=== PATIENT | male | born 1945 ===

== ENCOUNTER 2022-01-13 08:00 | Day surgery (SDC) | payer OTHER ==
[~2022-01-13] VITALS: Ht 177.8 cm; Wt 86.2 kg
[~2022-01-13 08:00] MED LIST: ATORVASTATIN CA20 MG PO; PROTONIX40 MG PO; RESTORIL PO; TOPROL XL200 MG PO; VITAMIN D310 MCG/1 M PO; ZESTRIL20 MG PO
== END 2022-01-13 18:05 | disposition home or self-care (01) ==
LOC: CIR.AMB 08:00 → O/R 08:00 → SURG 08:00 → EDSTATUS 08:30 → SURG 09:00 → CIR.AMB 18:05 → O/R 18:05
PROVIDERS: ATTEND Urology
DX: N40.0 Benign prostatic hyperplasia without lower urinary tract symptoms (principal); N13.1 Hydronephrosis with ureteral stricture, not elsewhere classified; I10 Essential (primary) hypertension; Z88.8 Allergy status to other drugs, medicaments and biological substances; I25.2 Old myocardial infarction; I25.10 Atherosclerotic heart disease of native coronary artery without angina pectoris